=== PATIENT | female | born 1985 | race Caucasian/White ===

== ENCOUNTER 2017-12-08 11:15 | Inpatient (IN) | payer MEDICAID ==
[~2017-12-08] VITALS: Ht 165.1 cm; Wt 58.0 kg
[2017-12-08 12:07] LABS: CALCIUM 8.3 mg/dL (8.5-10.1); CHLORIDE SERUM 105 mmol/L (98-107); GFR1 > 60 mL/min; GLUCOSE SERUM 83 mg/dL (74-106); POTASSIUM SERUM 3.7 mmol/L (3.5-5.1); SODIUM SERUM 140 mmol/L (136-145)
[2017-12-08 12:12] LABS: ALBUMIN 3.6 g/dL (3.4-5.0); ALKALINE PHOSPHATASE 47 U/L (46-116); ALT/SGPT 25 U/L (14-59); AST/SGOT 16 U/L (15-37); BILIRUBIN TOTAL 0.4 mg/dL (0.20-1.00); TOTAL PROTEIN, SERUM 6.5 g/dL (6.4-8.2)
[2017-12-08 12:18] LABS: BASOPHIL % 0.4 % (0-2); RED CELL DISTRIBUTION WIDTH 14.2 % (11.5-14.5)
[2017-12-08 12:19] LABS: PLATELET COUNT 430 x10^3mcL (130-400)
[2017-12-08 12:37] LABS: microscopic required? NO
[2017-12-08 12:50] LABS: urine erythrocyte NEGATIVE (NEGATIVE)
[2017-12-08 13:07] LABS: AMPHETAMINE QUAL UR NONE DETECTED (NEG <=1000)
[2017-12-08] MEDS ORDERED: LIT150 PO (18:42)
[2017-12-08 19:12] LABS: PHOSPHOROUS 3.5 mg/dL (2.5-4.9)
[2017-12-08 19:22] LABS: FREE T4 0.76 ng/dL (0.76-1.46)
[2017-12-08 19:23] LABS: FREE THYROXINE INDEX 1.7 ug/dL (1.4-4.5); T3 TOTAL 0.83 ng/mL; T4(THYROXINE) 4.6 ug/dL (4.7-13.3)
[2017-12-08 21:50] VITALS: BP 103/74
[2017-12-09 05:11] VITALS: BP 97/65
[2017-12-09 11:50] VITALS: BP 107/77
[2017-12-09 16:07] VITALS: BP 113/72
[2017-12-09] MEDS ORDERED: SEROQUEL100 MG PO (16:56)
[2017-12-09 19:42] VITALS: BP 99/33
[2017-12-10 06:17] LABS: BASOPHIL % 0.5 % (0-2); RED CELL DISTRIBUTION WIDTH 14.5 % (11.5-14.5)
[2017-12-10 06:34] LABS: CALCIUM 8.5 mg/dL (8.5-10.1); CARBON DIOXIDE 29.5 mmol/L (21-32); CHLORIDE SERUM 102 mmol/L (98-107); CREATININE SERUM 1.1 mg/dL (0.6-1.0); GFR1 > 60 mL/min; GLUCOSE SERUM 97 mg/dL (74-106); MAGNESIUM 1.9 mg/dL (1.8-2.4); PHOSPHOROUS 3.8 mg/dL (2.5-4.9); POTASSIUM SERUM 3.9 mmol/L (3.5-5.1); SODIUM SERUM 138 mmol/L (136-145)
[2017-12-10 06:46] LABS: PLATELET COUNT 446 x10^3mcL (130-400)
[2017-12-10 07:49] VITALS: BP 110/70
[2017-12-10 12:08] VITALS: BP 93/53
[2017-12-10 16:11] VITALS: BP 90/56
[2017-12-10 19:44] VITALS: BP 99/65
[2017-12-10 21:00] VITALS: BP 120/59
[2017-12-10 23:00] VITALS: BP 94/57
[2017-12-11 01:00] VITALS: BP 113/75
[2017-12-11 05:59] LABS: BASOPHIL % 0.4 % (0-2); RED CELL DISTRIBUTION WIDTH 14.1 % (11.5-14.5)
[2017-12-11 06:01] LABS: PLATELET COUNT 440 x10^3mcL (130-400)
[2017-12-11 06:08] LABS: CALCIUM 8.8 mg/dL (8.5-10.1); CARBON DIOXIDE 26.8 mmol/L (21-32); CHLORIDE SERUM 102 mmol/L (98-107); CREATININE SERUM 0.9 mg/dL (0.6-1.0); GFR1 > 60 mL/min; GLUCOSE SERUM 73 mg/dL (74-106); MAGNESIUM 1.8 mg/dL (1.8-2.4); PHOSPHOROUS 4.6 mg/dL (2.5-4.9); POTASSIUM SERUM 3.6 mmol/L (3.5-5.1); SODIUM SERUM 138 mmol/L (136-145)
[2017-12-11 07:57] VITALS: BP 95/56
[2017-12-11 17:35] VITALS: BP 104/72
[2017-12-11 21:22] VITALS: BP 106/72
[2017-12-12 05:59] VITALS: BP 104/69
[2017-12-12 07:30] LABS: CALCIUM 8.4 mg/dL (8.5-10.1); CARBON DIOXIDE 28.2 mmol/L (21-32); CHLORIDE SERUM 101 mmol/L (98-107); GFR1 > 60 mL/min; GLUCOSE SERUM 95 mg/dL (74-106); PHOSPHOROUS 3.9 mg/dL (2.5-4.9); POTASSIUM SERUM 4.1 mmol/L (3.5-5.1); SODIUM SERUM 140 mmol/L (136-145)
[2017-12-12 08:07] LABS: BASOPHIL % 0.5 % (0-2); PLATELET COUNT 420 x10^3mcL (130-400); RED CELL DISTRIBUTION WIDTH 14.1 % (11.5-14.5)
[2017-12-12 09:35] VITALS: BP 113/78
[2017-12-12 12:50] VITALS: BP 115/82
[2017-12-12 13:11] VITALS: Ht 165.1 cm; Wt 58.0 kg
[2017-12-12 18:22] VITALS: BP 112/75
[2017-12-12 20:15] VITALS: BP 99/66
[2017-12-13 04:49] VITALS: BP 105/71
[2017-12-13 07:10] LABS: BASOPHIL % 0.8 % (0-2); PLATELET COUNT 378 x10^3mcL (130-400); RED CELL DISTRIBUTION WIDTH 14.2 % (11.5-14.5)
[2017-12-13 07:36] LABS: CALCIUM 8.6 mg/dL (8.5-10.1); CARBON DIOXIDE 29.9 mmol/L (21-32); CHLORIDE SERUM 105 mmol/L (98-107); CREATININE SERUM 0.9 mg/dL (0.6-1.0); GFR1 > 60 mL/min; GLUCOSE SERUM 86 mg/dL (74-106); POTASSIUM SERUM 4.4 mmol/L (3.5-5.1); SODIUM SERUM 141 mmol/L (136-145)
[2017-12-13 09:58] VITALS: BP 104/69
[2017-12-13 18:42] VITALS: BP 100/73
[2017-12-13 21:58] VITALS: BP 90/64
[2017-12-14 06:04] VITALS: BP 93/63
[2017-12-14] MEDS ORDERED: LIT300 PO (09:33)
[2017-12-14] MEDS ORDERED: COL100 PO (09:33)
[2017-12-14 10:00] VITALS: BP 110/71
[2017-12-14 12:57] VITALS: BP 110/71
== END 2017-12-14 13:36 | disposition home or self-care (01) | DRG 753 ==
LOC: ED 11:15 → MU 18:17 → DU 18:17 → IC 18:17 → DU 21:42 → IC 12-09 09:16 → DU 12-11 09:59 → MU 12-11 10:08
PROVIDERS: Emergency Medicine; Family Medicine; Family Medicine Sports Medicine
DX: F31.2 Bipolar disorder, current episode manic severe with psychotic features (principal); N17.0 Acute kidney failure with tubular necrosis; G93.40 Encephalopathy, unspecified; D47.3 Essential (hemorrhagic) thrombocythemia; F12.10 Cannabis abuse, uncomplicated; Z68.21 Body mass index [BMI] 21.0-21.9, adult
CPT/HCPCS: 83880; 84439; G0480; J2060; J3486; J7030; Q0163